=== PATIENT | female | born 2000 | race Caucasian/White ===

== ENCOUNTER 2021-05-06 21:58 | Emergency (ER) | payer MEDICAID ==
--- NOTE | 2021-05-06 22:29 | EDM.PDOC ---
ED HPI GENERAL MEDICAL PROBLEM - General Stated Complaint: CHEST PAIN Time Seen by Provider: 05/06/21 22:27 Source of Information: Reports: Patient History Limitations: Reports: No Limitations - History of Present Illness INITIAL COMMENTS - FREE TEXT/NARRATIVE: James is 31 weeks .She complains of left sided chest pain x 1.5 hours. Mild to moderate,with no radiation and o SOB. - Related Data Allergies Allergy/AdvReac Type Severity Reaction Status Date / Time citalopram [From Celexa] Allergy Irritabilit Verified 05/06/21 23:10 y codeine Allergy Hives Verified 05/06/21 23:07 sertraline [From Zoloft] Allergy Irritabilit Verified 05/06/21 23:08 y Home Meds: Home Meds Pantoprazole Sodium [Protonix] 20 mg PO DAILY PRN 05/06/21 [History] Pnv No.95/Ferrous Fum/Folic AC [ Vitamins Tablet] 1 dose PO DAILY 05/06/21 [History] Past Medical History Respiratory History: Reports: Other (See Below) Other Respiratory History: smoker for 8 years and still a smoker with this . Psychiatric History: Reports: Anxiety, Depression Hematologic History: Reports: Bleeding Disorder, Other (See Below) Other Hematologic History: states that she has unspecified bleeding disorger and had hx of plasma transfusion. Social & Family History - Family History Family Medical History: No Pertinent Family History - Caffeine Use Caffeine Use: Reports: Soda ED ROS GENERAL - Review of Systems Review Of Systems: Comprehensive ROS is negative, except as noted in HPI. ED EXAM, GENERAL - Physical Exam Exam: See Below Exam Limited By: No Limitations General Appearance: Alert, WD/WN, No Apparent Distress Throat/Mouth: Normal Inspection Head: Atraumatic Neck: Normal Inspection Respiratory/Chest: No Respiratory Distress, Lungs Clear Cardiovascular: Normal Peripheral Pulses, Regular Rate, Rhythm, No Edema #1 Interpretation EKG Date: 05/06/21 Time: 22:19 Rhythm: NSR Rate (Beats/Min): 80 [place]: Normal P-Wave: Present QRS: Normal Course - Vital Signs Last Recorded V/S: Last Vital Signs Temp 97.7 F 05/06/21 22:10 Pulse 92 05/06/21 22:10 Resp 18 05/06/21 22:10 BP 116/75 05/06/21 22:10 Pulse Ox 98 07/05/21 22:10 - Orders/Labs/Meds Orders: Active Orders 24 hr Category Date Time Status EKG Documentation Completion [RC] ASDIRECTED Care 05/06/21 22:19 Active EKG 12 Lead [EK] Stat Ther 05/06/21 22:19 Ordered Labs: Laboratory Tests 05/06/21 05/06/21 05/06/21 Range/Units 22:27 22:27 22:27 WBC 12.8 H (3.0-10.3) x10-3/uL RBC 4.18 (3.60-5.20) x10(6)uL Hgb 11.8 (11.4-15.5) g/dL Hct 35.1 (34.2-48.2) % MCV 84.0 (76.7-100.5) fL MCH 28.3 (23.9-33.9) pg MCHC 33.7 (31.9-34.8) g/dL RDW 13.8 (12.3-16.5) % Plt Count 196 (151-488) x10(3)uL MPV 6.3 L (7.1-12.4) fL Neut % (Auto) 69.8 (30.8-76.2) % Lymph % (Auto) 20.5 (18.4-52.1) % [place] % (Auto) 6.9 (4.4-15.7) % Eos % (Auto) 2.2 (0.6-8.1) % Baso % (Auto) 0.6 (0.2-1.5) % Neut # (Auto) 8.9 H (1.5-6.3) x10-3/uL Lymph # (Auto) 2.6 (1.0-4.4) x10-3/uL [place] # (Auto) 0.9 (0.3-1.0) x10-3/uL Eos # (Auto) 0.3 (0.0-0.8) x10-3/uL Baso # (Auto) 0.1 (0.0-0.1) x10-3/uL Sodium 140 (135-145) mmol/L Potassium 3.7 (3.5-5.3) mmol/L Chloride 104 (100-110) mmol/L Carbon Dioxide 22 (21-32) mmol/L BUN 5 L (7-18) mg/dL Creatinine 0.6 (0.55-1.02) mg/dL Est Cr Clr Drug Dosing 121.66 mL/min Estimated GFR (MDRD) > 60 (>60) BUN/Creatinine Ratio 8.3 L (9-20) Glucose 104 (80-116) mg/dL Calcium 8.7 (8.6-10.2) mg/dL Troponin I 4.0 (4.0-60.3) pg/mL Departure - Departure Time of Disposition: 23:37 Disposition: Home, Self-Care 01 Condition: Good Clinical Impression: Atypical chest pain Instructions: Nonspecific Chest Pain, Pediatric Referrals: Justine Reyna [employer]PERATOR [Primary Care Provider] - 2 Days Forms: ED Department Discharge Sepsis Event Note (ED) - Focused Exam Vital Signs: Vital Signs Temp Pulse Resp BP Pulse Ox 05/06/21 22:10 97.7 F 92 18 116/75 98 - Problem List & Annotations (1) Atypical chest pain SNOMED Code(s): 148593774 Code(s): R07.89 - OTHER CHEST PAIN Status: Acute Current Visit: Yes - Problem List Review Problem List Initiated/Reviewed/Updated: Yes - My Orders Last 24 Hours: My Active Orders 05/06/21 22:19 EKG Documentation Completion [RC] ASDIRECTED EKG 12 Lead [EK] Stat - Assessment/Plan Last 24 Hours: My Active Orders 05/06/21 22:19 EKG Documentation Completion [RC] ASDIRECTED EKG 12 Lead [EK] Stat Plan: DC home.All labs look good.
== END 2021-05-06 23:41 | disposition home or self-care (01) ==
LOC: FB.ED 21:58
DX: O99.891 Other specified diseases and conditions complicating pregnancy (principal); R07.89 Other chest pain; Z88.5 Allergy status to narcotic agent; Z88.8 Allergy status to other drugs, medicaments and biological substances; Z3A.31 31 weeks gestation of pregnancy
CPT/HCPCS: 36415; 80048; 84484; 85025; 93005; 99285-25

== ENCOUNTER 2021-08-23 04:41 | Emergency (ER) | payer MEDICAID ==
[2021-08-23] MEDS ORDERED: Ciprofloxacin 500 MG Tab PO ONE (06:34)
--- NOTE | 2021-08-23 06:40 | EDM.PDOC ---
ED HPI GENERAL MEDICAL PROBLEM - General Chief Complaint: Syncope Stated Complaint: dizzyness Time Seen by Provider: 08/23/21 04:55 Source of Information: Reports: Patient History Limitations: Reports: No Limitations - History of Present Illness INITIAL COMMENTS - FREE TEXT/NARRATIVE: Woke up about 3 am feeling weak tried to get out of bed and felt dizzy, emelina spinning and she felt herself spinning , mild nausea no vomiting Stayed in bed , then was able to get up but as she walked to bathroom had same symptoms again and worse No chest pain , no headache. Symptoms persisted despite being in bed had baby about 6 weeks ago ; no abdominal pain , no bleeding but hemoglobin on discharge from hospital was about 9 . Pt has stopped taking her vitamins Onset: Today Onset Date: 08/23/21 Onset Time: 03:00 Duration: Getting Worse Location: Reports: Generalized Severity: Moderate Improves with: Reports: None Worsens with: Reports: None Context: Reports: Other (getting out of bed) Associated Symptoms: Reports: No Other Symptoms, Syncope. Denies: Fever/Chills, Headaches, Nausea/Vomiting - Related Data Allergies Allergy/AdvReac Type Severity Reaction Status Date / Time citalopram [From Celexa] Allergy Irritabilit Verified 08/23/21 06:31 y codeine Allergy Hives Verified 08/23/21 06:31 sertraline [From Zoloft] Allergy Irritabilit Verified 08/23/21 06:31 y Home Meds: Home Meds Pantoprazole Sodium [Protonix] 20 mg PO DAILY PRN 05/06/21 [History] Pnv No.95/Ferrous Fum/Folic AC [ Vitamins Tablet] 1 dose PO DAILY 05/06/21 [History] Ciprofloxacin HCl [Cipro] 500 mg PO BID #6 tablet 08/23/21 [Rx] Past Medical History - Past Health History Medical/Surgical History: Denies Medical/Surgical History Respiratory History: Reports: Other (See Below) Other Respiratory History: smoker for 8 years and still a smoker with this . [employer] CONSULTANT History: Reports: Other [employer] CONSULTANT History: [facility] 07-08-2021 Psychiatric History: Reports: Anxiety, Depression Hematologic History: Reports: Bleeding Disorder, Other (See Below) Other Hematologic History: states that she has unspecified bleeding disorger and had hx of plasma transfusion. Social & Family History - Family History Family Medical History: No Pertinent Family History - Caffeine Use Caffeine Use: Reports: Soda Caffeine Use Comment: 24 oz pop ED ROS GENERAL - Review of Systems Review Of Systems: Comprehensive ROS is negative, except as noted in HPI. ED EXAM, DIZZINESS - Physical Exam Exam: See Below Exam Limited By: No Limitations General Appearance: Alert, WD/WN, No Apparent Distress Eye Exam: Bilateral Eye: EOMI Ears: Hearing Grossly Normal Nose: Normal Inspection Throat/Mouth: Normal Oropharynx Head Exam: Atraumatic, Normocephalic Neck: Supple, Non-Tender Respiratory/Chest: Lungs Clear Cardiovascular: Regular Rate, Rhythm GI/Abdominal: Soft, Non-Tender Neurological: Alert, Normal Mood/Affect, CN II-XII Intact, Oriented x 3 Back Exam: Normal Inspection, Full Range of Motion Extremities: Normal Range of Motion, No Pedal Edema Psychiatric: Normal Affect, Normal Mood Skin Exam: Warm, Dry, Intact Course - Vital Signs Last Recorded V/S: Last Vital Signs Temp 36.4 C 08/23/21 04:45 Pulse 83 08/23/21 04:45 Resp 18 08/23/21 04:45 BP 130/77 08/23/21 04:45 Pulse Ox 99 08/23/21 04:45 - Orders/Labs/Meds Labs: Laboratory Tests 08/23/21 08/23/21 Range/Units 05:19 05:19 WBC 8.1 (3.0-10.3) x10-3/uL RBC 5.32 H (3.60-5.20) x10(6)uL Hgb 13.9 (11.4-15.5) g/dL Hct 42.0 (34.2-48.2) % MCV 79.1 (76.7-100.5) fL MCH 26.1 (23.9-33.9) pg MCHC 32.9 (31.9-34.8) g/dL RDW 15.3 (12.3-16.5) % Plt Count 219 (151-488) x10(3)uL MPV 6.3 L (7.1-12.4) fL Neut % (Auto) 57.2 (30.8-76.2) % Lymph % (Auto) 31.4 (18.4-52.1) % [place] % (Auto) 5.9 (4.4-15.7) % Eos % (Auto) 4.8 (0.6-8.1) % Baso % (Auto) 0.7 (0.2-1.5) % Neut # (Auto) 4.6 (1.5-6.3) x10-3/uL Lymph # (Auto) 2.5 (1.0-4.4) x10-3/uL [place] # (Auto) 0.5 (0.3-1.0) x10-3/uL Eos # (Auto) 0.4 (0.0-0.8) x10-3/uL Baso # (Auto) 0.1 (0.0-0.1) x10-3/uL Urine Color Yellow (YELLOW) Urine Appearance Slightly cloudy (CLEAR) Urine pH 5.0 (5.0-6.5) Ur Specific [place] 1.025 (1.010-1.025) Urine Protein Negative (NEGATIVE) mg/dL Urine Glucose (UA) Normal (NORMAL) mg/dL Urine Ketones Negative (NEGATIVE) mg/dL Urine Occult Blood Negative (NEGATIVE) Urine Nitrite Negative (NEGATIVE) Urine Bilirubin Negative (NEGATIVE) Urine Urobilinogen Normal (NEGATIVE) mg/dL Ur Leukocyte Esterase Small H (NEGATIVE) Urine RBC 0-5 (0-5) Urine WBC 5-10 H (0-5) Ur Squamous Epith Cells Moderate H (NS,R,O) Urine Bacteria Few H (NS) Meds: Medications Discontinued Medications Generic Name Dose Route Start Last Admin Trade Name Freq PRN Reason Stop Dose Admin Ciprofloxacin 500 mg 08/23/21 06:34 08/23/21 06:38 Ciprofloxacin 500 Mg Tab PO 08/23/21 06:35 500 mg ONETIME ONE Administration - Re-Assessments/Exams Free Text/Narrative Re-Assessment/Exam: 08/23/21 06:41 has remained stable Reviewed labs with pt and mother Departure - Departure Time of Disposition: 06:40 Disposition: Home, Self-Care 01 Condition: Fair Clinical Impression: UTI (urinary tract infection), Dehydration symptoms - Discharge Information *PRESCRIPTION DRUG MONITORING PROGRAM REVIEWED*: Not Applicable *COPY OF PRESCRIPTION DRUG MONITORING REPORT IN PATIENT YADIRA: Not Applicable Prescriptions: Ciprofloxacin HCl [Cipro] 500 mg PO BID #6 tablet Instructions: Urinary Tract Infection, Adult, Xkal-[id number], Near-Syncope, [id number], Dehydration, Adult, [id number] Referrals: Justine Reyna [employer]OUT [Primary Care Provider] - Forms: ED Department Discharge Sepsis Event Note (ED) - Focused Exam Vital Signs: Vital Signs Temp Pulse Resp BP Pulse Ox 08/23/21 04:45 36.4 C 83 18 130/77 99
== END 2021-08-23 06:55 | disposition home or self-care (01) ==
LOC: FB.ED 04:41
DX: N39.0 Urinary tract infection, site not specified (principal); R42 Dizziness and giddiness; R11.0 Nausea; F17.200 Nicotine dependence, unspecified, uncomplicated; Z88.1 Allergy status to other antibiotic agents; Z88.5 Allergy status to narcotic agent; Z88.8 Allergy status to other drugs, medicaments and biological substances
CPT/HCPCS: 36415; 81001; 85025; 99284; A9270

== ENCOUNTER 2022-12-16 15:31 | Emergency (ER) | payer MEDICAID ==
[2022-12-16 16:31] LABS: ESTIMATED GFR 106 mL/min (>60)
[2022-12-16 16:40] LABS: ACETAMINOPHEN < 2 ug/mL (<2)
== END 2022-12-16 18:30 | disposition home or self-care (01) ==
LOC: FB.ED 15:31
DX: F32.A Depression, unspecified (principal); F41.1 Generalized anxiety disorder; F17.210 Nicotine dependence, cigarettes, uncomplicated; Z88.8 Allergy status to other drugs, medicaments and biological substances; Z88.5 Allergy status to narcotic agent
CPT/HCPCS: 36415; 80053; 80143; 80179; 80307; 81001; 82947; 84439; 84443; 85025; 99284

== ENCOUNTER 2023-01-22 20:51 | Emergency (ER) | payer MEDICAID | END 2023-01-22 21:54 | disposition home or self-care (01) | LOC: FB.ED 20:51 | DX: N92.0 Excessive and frequent menstruation with regular cycle (principal); Z88.5 Allergy status to narcotic agent; Z88.8 Allergy status to other drugs, medicaments and biological substances; Z72.0 Tobacco use | CPT/HCPCS: 36415; 85018; 99283; 99284 ==

== ENCOUNTER 2023-10-09 21:24 | Emergency (ER) | payer SELFPAY | END 2023-10-09 22:40 | disposition home or self-care (01) | LOC: FB.ED 21:24 | DX: J20.9 Acute bronchitis, unspecified (principal); H61.21 Impacted cerumen, right ear; Z88.5 Allergy status to narcotic agent; Z88.8 Allergy status to other drugs, medicaments and biological substances | CPT/HCPCS: 99283 ==

== ENCOUNTER 2023-11-01 17:22 | Emergency (ER) | payer SELFPAY ==
[2023-11-01] MEDS ORDERED: Sodium Chloride 0.9% 10 ML Syringe FLUSH PRN (18:01)
[2023-11-01] MEDS ORDERED: Sodium Chloride 0.9% 1,000 ML IV ONE (18:01)
[2023-11-01 18:29] LABS: BASOPHILS ABSOLUTE AUTO 0.1 x10-3/uL (0.0-0.1); BASOPHILS PERCENT AUTO 0.6 % (0.2-1.5); EOSINOPHILS ABSOLUTE AUTO 0.1 x10-3/uL (0.0-0.8); EOSINOPHILS PERCENT AUTO 1.3 % (0.6-8.1); HEMATOCRIT 44.2 % (34.2-48.2); HEMOGLOBIN 15.3 g/dL (11.4-15.5); LYMPHOCYTES ABSOLUTE AUTO 1.8 x10-3/uL (1.0-4.4); LYMPHOCYTES PERCENT AUTO 20.6 % (18.4-52.1); MEAN CORPUSCULAR HGB CONC 34.5 g/dL (31.9-34.8); MEAN CORPUSCULAR VOLUME 86.9 fL (76.7-100.5); MEAN PLATELET VOLUME 6.5 fL (7.1-12.4); MONOCYTES ABSOLUTE AUTO 0.6 x10-3/uL (0.3-1.0); MONOCYTES PERCENT AUTO 6.5 % (4.4-15.7); NEUTROPHILS ABSOLUTE AUTO 6.1 x10-3/uL (1.5-6.3); PLATELET COUNT,PLT 242 x10(3)uL (151-488); RED BLOOD CELL COUNT 5.08 x10(6)uL (3.60-5.20); RED CELL DISTRIBUTION WIDTH 13.2 % (12.3-16.5); WHITE BLOOD CELL COUNT,WBC 8.6 x10-3/uL (3.0-10.3)
[2023-11-01 18:34] LABS: BLOOD UREA NITROGEN,BUN 8 mg/dL (7-18); BUN/CREATININE RATIO 13.3 (9-20); CALCIUM 9.7 mg/dL (8.6-10.2); CARBON DIOXIDE,CO2 26 mmol/L (21-32); CHLORIDE,CL 102 mmol/L (100-110); CREATININE 0.6 mg/dL (0.55-1.02); ESTIMATED GFR 128 mL/min (>60); GLUCOSE RANDOM 88 mg/dL (80-116); POTASSIUM,K 3.7 mmol/L (3.5-5.3); SODIUM,NA 139 mmol/L (135-145)
[2023-11-01 18:40] LABS: A/G RATIO 1.1; ALANINE AMINOTRANSFERASE,ALT 21 U/L (12-36); ALBUMIN 4.1 g/dL (3.5-5.2); ALKALINE PHOSPHATASE 53 IU/L (56-112); ASPARTATE AMNIOTRANSFERASE,AST 10 IU/L (5-25); BILIRUBIN TOTAL 0.3 mg/dL (0.1-1.3); MAGNESIUM 1.8 mg/dL (1.8-2.5); PROTEIN TOTAL,TP 7.8 g/dL (6.0-8.0)
[2023-11-01 19:32] LABS: AMPHETAMINES SCREEN, URINE NEGATIVE (NEGATIVE); BARBITURATE SCREEN,URINE NEGATIVE (NEGATIVE); BENZODIAZEPINES SCREEN,URINE NEGATIVE (NEGATIVE); METHADONE SCREEN, URINE NEGATIVE (NEGATIVE); METHAMPHETAMINE SCREEN, URINE NEGATIVE (NEGATIVE); OXYCODONE SCREEN,URINE NEGATIVE (NEGATIVE); THC SCREEN,URINE NEGATIVE (NEGATIVE)
[2023-11-01 19:33] LABS: BUPRENORPHINE SCREEN,URINE NEGATIVE (NEGATIVE)
== END 2023-11-01 20:12 | disposition home or self-care (01) ==
LOC: FB.ED 17:22
DX: T51.0X1A Toxic effect of ethanol, accidental (unintentional), initial encounter (principal); R00.0 Tachycardia, unspecified; R23.2 Flushing; E86.0 Dehydration; F17.200 Nicotine dependence, unspecified, uncomplicated; Z86.16 Personal history of COVID-19; Z88.5 Allergy status to narcotic agent; Z88.8 Allergy status to other drugs, medicaments and biological substances
CPT/HCPCS: 36415; 80053; 80307; 81025; 83735; 85025; 96360; 99284; J7030

== ENCOUNTER 2024-07-18 10:37 | Emergency (ER) | payer MEDICAID ==
[2024-07-18 11:55] LABS: BILIRUBIN,URINE NEGATIVE (NEGATIVE); GLUCOSE,URINE NORMAL (NORMAL); KETONES,URINE NEGATIVE (NEGATIVE); LEUKOCYTE ESTERASE,URINE NEGATIVE (NEGATIVE); NITRITE,URINE NEGATIVE (NEGATIVE); OCCULT BLOOD,URINE MODERATE (NEGATIVE); PROTEIN,URINE NEGATIVE (NEGATIVE); UROBILINOGEN,URINE 1 mg/dL (NEGATIVE)
[2024-07-18 12:01] LABS: APPEARANCE,URINE CLEAR (CLEAR); BACTERIA,URINE FEW (NS); COLOR,URINE YELLOW (YELLOW); MUCUS,URINE MODERATE (NS); RBC,URINE 0-5 (0-5); SQUAMOUS EPITHELIAL CELLS,UR MODERATE (NS,R,O); WBC,URINE 0-5 (0-5)
[2024-07-18 12:29] LABS: BASOPHILS ABSOLUTE AUTO 0.1 x10-3/uL (0.0-0.1); EOSINOPHILS ABSOLUTE AUTO 0.2 x10-3/uL (0.0-0.8); EOSINOPHILS PERCENT AUTO 3.9 % (0.6-8.1); HEMATOCRIT 42.6 % (34.2-48.2); HEMOGLOBIN 14.7 g/dL (11.4-15.5); LYMPHOCYTES ABSOLUTE AUTO 1.4 x10-3/uL (1.0-4.4); LYMPHOCYTES PERCENT AUTO 22.6 % (18.4-52.1); MEAN CORPUSCULAR HEMOGLOBIN 30.6 pg (23.9-33.9); MEAN CORPUSCULAR HGB CONC 34.6 g/dL (31.9-34.8); MEAN CORPUSCULAR VOLUME 88.3 fL (76.7-100.5); MEAN PLATELET VOLUME 6.8 fL (7.1-12.4); MONOCYTES ABSOLUTE AUTO 0.4 x10-3/uL (0.3-1.0); MONOCYTES PERCENT AUTO 6.1 % (4.4-15.7); NEUTROPHILS PERCENT AUTO 66.4 % (30.8-76.2); PLATELET COUNT,PLT 208 x10(3)uL (151-488); RED BLOOD CELL COUNT 4.82 x10(6)uL (3.60-5.20); RED CELL DISTRIBUTION WIDTH 12.4 % (12.3-16.5)
[2024-07-18 12:30] LABS: BLOOD UREA NITROGEN,BUN 7 mg/dL (7-18); BUN/CREATININE RATIO 7.8 (9-20); CALCIUM 8.8 mg/dL (8.6-10.2); CARBON DIOXIDE,CO2 29 mmol/L (21-32); CHLORIDE,CL 104 mmol/L (100-110); CREATININE 0.9 mg/dL (0.55-1.02); EST CRCL DRUG DOSING (CG) 79.04 mL/min; ESTIMATED GFR 91 mL/min (>60); GLUCOSE RANDOM 97 mg/dL (80-116); POTASSIUM,K 3.5 mmol/L (3.5-5.3); SODIUM,NA 143 mmol/L (135-145)
[2024-07-18 12:37] LABS: A/G RATIO 1.1; ALANINE AMINOTRANSFERASE,ALT 39 U/L (12-36); ALBUMIN 3.8 g/dL (3.5-5.2); ALKALINE PHOSPHATASE 50 IU/L (56-112); ASPARTATE AMNIOTRANSFERASE,AST 21 IU/L (5-25); BILIRUBIN TOTAL 0.5 mg/dL (0.1-1.3); MAGNESIUM 1.5 mg/dL (1.8-2.5); PROTEIN TOTAL,TP 7.2 g/dL (6.0-8.0)
== END 2024-07-18 13:17 | disposition home or self-care (01) ==
LOC: FB.ED 10:37
DX: F07.81 Postconcussional syndrome (principal); N93.8 Other specified abnormal uterine and vaginal bleeding; J45.909 Unspecified asthma, uncomplicated; F17.290 Nicotine dependence, other tobacco product, uncomplicated; Z86.16 Personal history of COVID-19; Z88.8 Allergy status to other drugs, medicaments and biological substances; Z88.5 Allergy status to narcotic agent
CPT/HCPCS: 36415; 70450; 72125; 80053; 81001; 81025; 83735; 85025; 93005; 99284

== ENCOUNTER 2024-12-31 22:23 | Emergency (ER) | payer MEDICAID ==
[2024-12-31 23:09] LABS: BASOPHILS ABSOLUTE AUTO 0.1 x10-3/uL (0.0-0.1); EOSINOPHILS ABSOLUTE AUTO 0.2 x10-3/uL (0.0-0.8); HEMATOCRIT 42.9 % (34.2-48.2); LYMPHOCYTES ABSOLUTE AUTO 2.6 x10-3/uL (1.0-4.4); MEAN CORPUSCULAR HEMOGLOBIN 30.4 pg (23.9-33.9); MEAN CORPUSCULAR VOLUME 86.9 fL (76.7-100.5); MEAN PLATELET VOLUME 6.5 fL (7.1-12.4); MONOCYTES ABSOLUTE AUTO 0.4 x10-3/uL (0.3-1.0); MONOCYTES PERCENT AUTO 5.3 % (4.4-15.7); NEUTROPHILS ABSOLUTE AUTO 5.1 x10-3/uL (1.5-6.3); NEUTROPHILS PERCENT AUTO 60.7 % (30.8-76.2); PLATELET COUNT,PLT 198 x10(3)uL (151-488); RED BLOOD CELL COUNT 4.94 x10(6)uL (3.60-5.20); RED CELL DISTRIBUTION WIDTH 13.1 % (12.3-16.5); WHITE BLOOD CELL COUNT,WBC 8.3 x10-3/uL (3.0-10.3)
[2024-12-31 23:19] LABS: BLOOD UREA NITROGEN,BUN 10 mg/dL (7-18); BUN/CREATININE RATIO 14.3 (9-20); CALCIUM 9.1 mg/dL (8.6-10.2); CARBON DIOXIDE,CO2 26 mmol/L (21-32); CHLORIDE,CL 101 mmol/L (100-110); CREATININE 0.7 mg/dL (0.55-1.02); ESTIMATED GFR 123 mL/min (>60); GLUCOSE RANDOM 113 mg/dL (80-116); POTASSIUM,K 3.1 mmol/L (3.5-5.3); SODIUM,NA 139 mmol/L (135-145)
== END 2024-12-31 23:37 | disposition home or self-care (01) ==
LOC: FB.ED 22:23
DX: F41.1 Generalized anxiety disorder (principal); Z86.16 Personal history of COVID-19; Z88.5 Allergy status to narcotic agent; Z88.8 Allergy status to other drugs, medicaments and biological substances
CPT/HCPCS: 36415; 70450; 80048; 84484; 85025; 93005; 99285

== ENCOUNTER 2025-08-22 19:31 | Emergency (ER) | payer MEDICAID ==
[2025-08-22 19:54] LABS: BASOPHILS ABSOLUTE AUTO 0.1 x10-3/uL (0.0-0.1); BASOPHILS PERCENT AUTO 0.6 % (0.2-1.5); EOSINOPHILS ABSOLUTE AUTO 0.4 x10-3/uL (0.0-0.8); EOSINOPHILS PERCENT AUTO 4.2 % (0.6-8.1); LYMPHOCYTES ABSOLUTE AUTO 2.2 x10-3/uL (1.0-4.4); LYMPHOCYTES PERCENT AUTO 24.9 % (18.4-52.1); MEAN PLATELET VOLUME 6.4 fL (7.1-12.4); MONOCYTES ABSOLUTE AUTO 0.6 x10-3/uL (0.3-1.0); MONOCYTES PERCENT AUTO 6.5 % (4.4-15.7); NEUTROPHILS ABSOLUTE AUTO 5.6 x10-3/uL (1.5-6.3); NEUTROPHILS PERCENT AUTO 63.8 % (30.8-76.2); PLATELET COUNT,PLT 230 x10(3)uL (151-488); RED BLOOD CELL COUNT 5.14 x10(6)uL (3.60-5.20); RED CELL DISTRIBUTION WIDTH 13.2 % (12.3-16.5); WHITE BLOOD CELL COUNT,WBC 8.9 x10-3/uL (3.0-10.3)
[2025-08-22 19:59] LABS: BLOOD UREA NITROGEN,BUN 10 mg/dL (7-18); CARBON DIOXIDE,CO2 28 mmol/L (21-32); CHLORIDE,CL 101 mmol/L (100-110); CREATININE 0.7 mg/dL (0.55-1.02); EST CRCL DRUG DOSING (CG) 100.74 mL/min; ESTIMATED GFR 122 mL/min (>60); GLUCOSE RANDOM 125 mg/dL (80-116); POTASSIUM,K 3.7 mmol/L (3.5-5.3); SODIUM,NA 139 mmol/L (135-145)
[2025-08-22 20:06] LABS: ETHANOL BLOOD MEDICAL < 0.03 % (<0.03)
[2025-08-22 20:08] LABS: A/G RATIO 1.0; ALANINE AMINOTRANSFERASE,ALT 28 U/L (12-36); ASPARTATE AMNIOTRANSFERASE,AST 22 IU/L (5-25); BILIRUBIN TOTAL 0.3 mg/dL (0.1-1.3); PROTEIN TOTAL,TP 8.2 g/dL (6.0-8.0)
[2025-08-22] MEDS: Ketorolac 30 MG/ML SDV IVPUSH ONE (20:31)
[2025-08-22] MEDS: Sodium Chloride 0.9% 10 ML Syringe FLUSH PRN (20:32)
[2025-08-30 08:40] LABS: AMMONIA, PLASMA 16 umol/L (11-51)
== END 2025-08-22 20:41 ==
LOC: FB.ED 19:31
DX: F10.10 Alcohol abuse, uncomplicated (principal); J45.909 Unspecified asthma, uncomplicated; Z88.5 Allergy status to narcotic agent; Z88.8 Allergy status to other drugs, medicaments and biological substances; Z86.16 Personal history of COVID-19; Y90.0 Blood alcohol level of less than 20 mg/100 ml
CPT/HCPCS: 36415; 80053; 80307; 82140; 83690; 85025; 96374; 99284; J1885

== ENCOUNTER 2025-08-27 21:44 | Emergency (ER) | payer MEDICAID ==
[2025-08-27] MEDS: Ketorolac 30 MG/ML SDV IM ONE (22:10)
[2025-08-27] MEDS: Amoxicillin/Clavulanate K 875-125 MG Tab PO ONE (22:10)
== END 2025-08-27 22:15 | disposition home or self-care (01) ==
LOC: FB.ED 21:44
DX: K04.7 Periapical abscess without sinus (principal); Z86.16 Personal history of COVID-19; Z88.5 Allergy status to narcotic agent; Z88.8 Allergy status to other drugs, medicaments and biological substances
CPT/HCPCS: 96372; 99282; A9270; J1885